=== PATIENT | female | born 2000 | race African-American/Black ===

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

== ENCOUNTER → 2018-07-31 | Outpatient (CLI) | payer OTHER ==
[~2018-07-31] MED LIST: PENVK500 PO
[2018-08-02 02:11] LABS: CHLAMYDIA TRACHOMATIS, NAA Negative (Negative); NEISSERIA GONORRHOEAE, NAA Negative (Negative)
== END | disposition home or self-care (01) ==
LOC: LAB SHORT 14:06 → LAB 14:06
PROVIDERS: Advanced Practice Midwife
DX: Z11.3 Encounter for screening for infections with a predominantly sexual mode of transmission (principal)
CPT/HCPCS: 87491; 87591

== ENCOUNTER → 2018-09-02 | Outpatient (CLI) | payer OTHER ==
[2018-09-03 10:32] LABS: Candida species (DNA Probe) Negative (NEGATIVE); G. vaginalis (DNA Probe) Negative (NEGATIVE); T. vaginalis (DNA Probe) Negative (NEGATIVE)
== END | disposition home or self-care (01) ==
LOC: LAB 11:30 → LAB SHORT 11:30
PROVIDERS: Advanced Practice Midwife
DX: N76.0 Acute vaginitis (principal)
CPT/HCPCS: 87480; 87510; 87660

== ENCOUNTER → 2018-09-16 | Outpatient (CLI) | payer OTHER | END | disposition home or self-care (01) | LOC: LAB SHORT 10:47 → LAB 10:47 | DX: Z34.00 Encounter for supervision of normal first pregnancy, unspecified trimester (principal) | CPT/HCPCS: 87081; 87653 ==

== ENCOUNTER 2018-10-16 06:18 | Inpatient (IN) | payer OTHER ==
[~2018-10-16] VITALS: Ht 170.2 cm; Wt 109.0 kg
[2018-10-16] MEDS ORDERED: Verotin-Gr Cap1 EACH (06:39)
[2018-10-16 06:50] LABS: BASOPHILS ABSOLUTE AUTO 0.03 K/mm3 (0.00-0.23); BASOPHILS PERCENT AUTO 0 % (0-2); EOSINOPHILS ABSOLUTE AUTO 0.11 K/mm3 (0.00-0.68); EOSINOPHILS PERCENT AUTO 1 % (0-6); Hematocrit 34.7 % (33.0-51.0); Hemoglobin 11.2 g/dL (11.5-16.0); IMMATURE GRAN ABSOLUTE AUTO 0.03 K/mm3 (0.00-0.10); IMMATURE GRAN PERCENT AUTO 0 % (0-1); LYMPHOCYTES ABSOLUTE AUTO 2.31 K/mm3 (0.84-5.20); LYMPHOCYTES PERCENT AUTO 27 % (21-46); MONOCYTES ABSOLUTE AUTO 1.12 K/mm3 (0.16-1.47); MONOCYTES PERCENT AUTO 13 % (4-13); Mean Corpuscular HGB 25.5 pg (26.0-34.0); Mean Corpuscular HGB Conc 32.3 g/dL (31.5-36.5); Mean Corpuscular Volume 79 fL (80-100); Mean Platelet Volume 10.6 fL (9.1-12.4); NEUTROPHILS ABSOLUTE AUTO 4.89 K/mm3 (1.96-9.15); NEUTROPHILS PERCENT AUTO 58 % (41-73); Platelet Count 281 K/mm3 (150-400); RDW Coefficient Variation 13.8 % (11.7-14.2); RDW Standard Deviation 39.2 fL (35.1-46.3); Red Blood Cell Count 4.39 M/mm3 (3.80-5.20); White Blood Cell Count 8.49 K/mm3 (4.00-11.30)
--- NOTE | 2018-10-18 02:45 | NUR ---
late entry: 10/16/2018 epidural settings verified with Dr. Grey @ time of setting up . Dr present when epidural was connected and started.
[2018-10-18 05:49] LABS: Hematocrit 31.8 % (33.0-51.0); Hemoglobin 10.2 g/dL (11.5-16.0); Mean Corpuscular HGB 26.3 pg (26.0-34.0); Mean Corpuscular HGB Conc 32.1 g/dL (31.5-36.5); Mean Platelet Volume 10.3 fL (9.1-12.4); Platelet Count 250 K/mm3 (150-400); RDW Standard Deviation 41.1 fL (35.1-46.3); Red Blood Cell Count 3.88 M/mm3 (3.80-5.20); White Blood Cell Count 9.46 K/mm3 (4.00-11.30)
[2018-10-18 05:50] LABS: Mean Corpuscular Volume 82 fL (80-100)
--- NOTE | 2018-10-18 10:15 | NUR ---
PLANNING TO DC HOME THIS AFTERNOON, BUT WAITING ON MOM FEELING BETTER ABOUT FEEDING. RN IN ROOM FOR FEEDING FOR LOTS OF TEACHING. FOB HELPFUL, HE IS HERE FROM [place], DOESN'T LIVE HERE, BUT THEY ARE TOGETHER. MOM ASKING FOR BOTTLES, DISCUSSED FEEDING PLAN TO JUST BRF, OFFERED TO DO SYRING FEED WITH FEEDING TUBE AT BREAST RATHER ATIYA BOTTLE/NIPPLE. DISCUSSED SIXE OF NB BELLY, BOOKLET SHOWN AND TEACHING DONE. MOM HAS LOTS OF CLOSTRUM, AND REASSURED NB IS SATIFIED AFTER FEEDING. TOLD MOM IT IS FINE IF SHE WANTS TO SUPPLEMENT, BUT SHOUDL ONLY DO 10MLS UNTIL DAY 3. IF MILK IS IN THEN TO STOP. PT VERBALIZES UNDERSTANDING.
[2018-10-18] MEDS ORDERED: IBUP800 PO (15:56)
== END 2018-10-18 16:35 | disposition home or self-care (01) | DRG 807 ==
LOC: OBS 06:18 → BC 06:19 → OBS 06:25 → BC 06:26
PROVIDERS: ADMIT Advanced Practice Midwife
PROC: 10E0XZZ Delivery of Products of Conception, External Approach (ICD-10-PCS; principal; 2018-10-17)
PROC: 6A550ZT Pheresis of Cord Blood Stem Cells, Single (ICD-10-PCS; 2018-10-17)
PROC: 0UQGXZZ Repair Vagina, External Approach (ICD-10-PCS; 2018-10-17)
PROC: 3E0R3BZ Introduction of Anesthetic Agent into Spinal Canal, Percutaneous Approach (ICD-10-PCS; 2018-10-17)
PROC: 00HU33Z Insertion of Infusion Device into Spinal Canal, Percutaneous Approach (ICD-10-PCS; 2018-10-17)
DX: O99.824 Streptococcus B carrier state complicating childbirth (principal); Z37.0 Single live birth; O71.4 Obstetric high vaginal laceration alone; Z3A.39 39 weeks gestation of pregnancy
CPT/HCPCS: 36415; 51702; 85025; 85027; 90471; 90707; J0290; J1885; J2001; J2590; J3010; J7120